=== PATIENT | female | born 1965 | race Caucasian/White ===

== ENCOUNTER 2019-11-04 19:26 | Emergency (ER) | payer OTHER, SELFPAY ==
[2019-11-04] MEDS ORDERED: Prochlorperazine 10 MG/2 ML VIAL ONE (20:12)
[2019-11-04] MEDS ORDERED: Loperamide HCl 2 MG CAP ONE (20:12)
[2019-11-04] MEDS ORDERED: Ondansetron ODT 4 MG TAB ONE (20:12)
== END 2019-11-04 20:41 | disposition home or self-care (01) ==
LOC: MADERS 19:26
DX: J20.8 Acute bronchitis due to other specified organisms (principal); K52.9 Noninfective gastroenteritis and colitis, unspecified; F31.9 Bipolar disorder, unspecified; F20.9 Schizophrenia, unspecified; Z79.899 Other long term (current) drug therapy
CPT/HCPCS: 87804; 96372; 99284; J0780; Q0162

== ENCOUNTER 2019-11-23 22:17 | Emergency (ER) | payer OTHER ==
--- NOTE | 2019-11-23 22:47 | RAD ---
XR Ankle Lt 3 View STANDARD HISTORY: Injury to ankle COMPARISON: None. FINDINGS: There is an avulsive-type injury off the dorsal side of the talus which could be acute. No joint effusion. Calcaneal spurs are noted. IMPRESSION: Avulsion fracture from the dorsal side of the distal talus.
[2019-11-23] MEDS ORDERED: Ibuprofen 800 MG TAB ONE (23:01)
== END 2019-11-23 23:14 | disposition home or self-care (01) ==
LOC: MADERS 22:17
DX: S92.155A Nondisplaced avulsion fracture (chip fracture) of left talus, initial encounter for closed fracture (principal); F31.9 Bipolar disorder, unspecified; F20.9 Schizophrenia, unspecified; Z79.899 Other long term (current) drug therapy; W10.9XXA Fall (on) (from) unspecified stairs and steps, initial encounter

== ENCOUNTER 2020-02-24 17:22 | Emergency (ER) | payer OTHER, SELFPAY | END 2020-02-24 17:55 | disposition home or self-care (01) | LOC: MADERS 17:22 | DX: J06.9 Acute upper respiratory infection, unspecified (principal); F31.9 Bipolar disorder, unspecified; F20.9 Schizophrenia, unspecified; Z79.899 Other long term (current) drug therapy | CPT/HCPCS: 99283 ==

== ENCOUNTER 2020-05-28 13:44 | Outpatient (CLI) | payer OTHER ==
--- NOTE | 2020-05-28 14:04 | RAD ---
Exam: XR Knee Rt 4 View STANDARD HISTORY: Right knee pain after a fall one month ago COMPARISON: 11/23/2013 FINDINGS: There is mild capsular distention suprapatellar location. A patellar enthesophyte is seen. No acute fracture, dislocation, or other acute osseous abnormality is identified. IMPRESSION: Small joint effusion without evidence of an acute osseous abnormality.
== END 2020-05-28 13:45 | disposition home or self-care (01) ==
LOC: MADRAD 13:44
PROVIDERS: ATTEND Family Medicine
DX: M25.561 Pain in right knee (principal); M25.461 Effusion, right knee

== ENCOUNTER 2020-10-06 12:54 | Emergency (ER) | payer OTHER, SELFPAY ==
--- NOTE | 2020-10-06 13:41 | RAD ---
EXAM: Single view of the chest HISTORY: Cough and fever COMPARISON: None FINDINGS: Single view of the chest shows a mildly enlarged cardiomediastinal silhouette. There is no evidence of consolidation, mass, or pleural effusion. No acute osseous abnormality. IMPRESSION: No evidence of acute cardiopulmonary disease
[2020-10-07 08:17] LABS: SARS-CoV-2 MS2 Positive; SARS-CoV-2 N Gene Positive; SARS-CoV-2 S Gene Positive; SARS-CoV-2 by NAA DETECTED (NotDetected); SARS-CoV-2 orf1ab Positive
== END 2020-10-06 14:55 | disposition home or self-care (01) ==
LOC: MADERS 12:54
DX: U07.1 COVID-19 (principal); F31.9 Bipolar disorder, unspecified; F20.9 Schizophrenia, unspecified
CPT/HCPCS: 71045; 87635; U0003

== ENCOUNTER 2020-11-15 22:41 | Emergency (ER) | payer SELFPAY ==
[2020-11-15 23:27] LABS: Hemoglobin 8.4 g/dL (12.0-16.0); Mean Corpuscular Hemoglobin 24.1 pg (27.0-31.0); Mean Corpuscular Volume 77.9 fL (78.0-98.0); Mean Platelet Volume 6.4 fL (7.4-10.4); Platelet Count 478 thou/uL (130-400); RBC Distribution Width 17.8 % (11.5-14.5); White Blood Cell (WBC) Count 6.8 thou/uL (4.8-10.8)
[2020-11-15 23:35] LABS: Band 4 % (5-11); Helmet Cells SLIGHT = 2-5 cells (100X) (0-1/hpf); Hypochromia MODERATE=16-30 cells (100X) (0-5/hpf); Lymphocytes 44 % (21-51); MDiff Complete? YES; Monocytes 6 % (0-10); Neutrophil 44 % (42-75); Ovalocytes SLIGHT = 2-5 cells (100X) (0-1/hpf); Platelet Morphology Comment Appears Adequate; Target Cells SLIGHT = 2-5 cells (100X) (0-1/hpf); Tear Drops SLIGHT = 2-5 cells (100X) (0-1/hpf)
[2020-11-15 23:36] LABS: ALT (SGPT) 31 U/L (8-55); AST (SGOT) 94 U/L (5-34); Albumin 3.5 g/dL (3.5-5.0); Alkaline Phosphatase 178 U/L (40-110); Anion Gap 15 mmol/L (10-20); BUN (Urea Nitrogen) 15 mg/dL (9.8-20.1); Bilirubin, Total 0.6 mg/dL (0.2-1.2); Calc. Creatinine Clearance 0 mL/min (70-130); Calcium 8.5 mg/dL (7.8-10.44); Carbon Dioxide 21 mmol/L (22-29); Chloride 106 mmol/L (98-107); Globulin 2.6 g/dL (2.4-3.5); Glucose 117 mg/dL (70-105); Potassium 4.1 mmol/L (3.5-5.1); Protein, Total 6.1 g/dL (6.0-8.3); Sodium 138 mmol/L (136-145)
--- NOTE | 2020-11-15 23:38 | CT ---
CT ABDOMEN NONCONTRAST CT PELVIS NONCONTRAST: (Urolithiasis protocol) DATE: 11/15/2020 11:21 PM HISTORY: 55-year-old female with abdominal pain, including right flank pain COMPARISON: None TECHNIQUE: IV injection of iodinated contrast media: None Oral contrast media: None FINDINGS: Other than for urolithiasis, the lack of IV and oral contrast limits the evaluation. Streaky platelike and groundglass infiltrates, mostly peripheral, at the bases of bilateral lower lob es and right middle lobe. No pleural effusion, ascites, pneumoperitoneum, colonic diverticulitis, or small bowel dilation. Large number of small partially calcified gallstones within distended gallbladder. Minimal pericholec ystic fat stranding questioned. Approximately 35-50% of the stomach herniated into lower mediastinum. No renal, ureteral, or bladder calculus. Normal appendix. Within the limitations of a noncontrast scan, no major pathology identified involving kidneys, bladde r, abdominal aorta, pancreas, adrenals, liver, or spleen. IMPRESSION: 1) cholelithiasis within distended gallbladder, questionable for acute cholecystitis. 2) nonspecific bibasilar infiltrates. This may or may not represent COVID-19 pneumonia. 3) moderate size hiatal hernia. 4) no urolithiasis or obstructive uropathy.
[2020-11-15] MEDS ORDERED: Bacitracin 1 PK ONE (23:40)
[2020-11-15] MEDS ORDERED: Morphine 4 MG/ML VIAL ONE (23:49)
[2020-11-15] MEDS ORDERED: Piperacillin/Tazobactam 4.5 GM VIAL ONE (23:50)
[2020-11-15] MEDS ORDERED: Ondansetron PF 4 MG/2 ML Vial ONE (23:50)
[2020-11-15] MEDS ORDERED: Sodium Chloride 0.9% 100 ML ONE (23:50)
[2020-11-15] MEDS ORDERED: Sodium Chloride 0.9% 1,000 ML ONE (23:50)
== END 2020-11-16 00:16 | disposition short-term general hospital (02) ==
LOC: MADERS 22:41
DX: K80.20 Calculus of gallbladder without cholecystitis without obstruction (principal); Z86.718 Personal history of other venous thrombosis and embolism; Z79.899 Other long term (current) drug therapy; Z79.01 Long term (current) use of anticoagulants
CPT/HCPCS: 74176; 80053; 85025; 93005; 96365; 96375; J2270; J2405; J2543; J3490; J7050

== ENCOUNTER 2020-11-27 12:02 | Emergency (ER) | payer OTHER, SELFPAY ==
[~2020-11-27 12:02] MED LIST: Iopamidol 370 76% 125 ML VIAL FS ONE
[2020-11-27] MEDS ORDERED: Enoxaparin Sodium 80 MG/0.8 ML SYRINGE ONE (13:09)
--- NOTE | 2020-11-27 13:19 | RAD ---
EXAM: Portable chest PROVIDED CLINICAL HISTORY: Dyspnea COMPARISON: None FINDINGS: Cardiac silhouette appears enlarged, which may be least partially on the basis of portable technique. There are persistent but less conspicuous peripheral interstitial opacities typical for sequela of Covid pneumonia. No lobar consolidation, pleural fluid or pneumothorax apparent. IMPRESSION: 1. Prominence of the cardiac silhouette, new from prior. 2. Persistent but diminished bilateral peripheral interstitial opacities typical for sequela of Covid pneumonia.
[2020-11-27 13:47] LABS: #Basophils 0.1 thou/uL (0.0-0.2); #Eosinphils 0.2 thou/uL (0.0-0.7); #Lymphocytes 1.7 thou/uL (1.20-3.40); #Monocytes 0.6 thou/uL (0.11-0.59); #Neutrophils 3.8 thou/uL (1.40-6.50); %Basophils 1.7 % (0.0-1.0); %Eosinophils 3.5 % (0.0-10.0); %Lymphocytes 26.5 % (21.0-51.0); %Monocytes 9.6 % (0.0-10.0); %Neutrophils 58.8 % (42.0-75.0); Anisocytosis SLIGHT = 6-15 cells (100X) (0-5/hpf); Hemoglobin 9.3 g/dL (12.0-16.0); Hypochromia MODERATE=16-30 cells (100X) (0-5/hpf); MDiff Complete? YES; Mean Corpuscular HGB CONC 29.8 g/dL (32.0-36.0); Mean Corpuscular Hemoglobin 22.6 pg (27.0-31.0); Mean Corpuscular Volume 76.1 fL (78.0-98.0); Mean Platelet Volume 6.7 fL (7.4-10.4); Microcytosis SLIGHT = 6-15 cells (100X) (0-5/hpf); Platelet Count 431 thou/uL (130-400); Platelet Morphology Comment Appears Increased; RBC Distribution Width 16.8 % (11.5-14.5); Target Cells SLIGHT = 2-5 cells (100X) (0-1/hpf); White Blood Cell (WBC) Count 6.4 thou/uL (4.8-10.8)
[2020-11-27 13:50] LABS: ALT (SGPT) 42 U/L (8-55); AST (SGOT) 22 U/L (5-34); Albumin 3.8 g/dL (3.5-5.0); Alkaline Phosphatase 211 U/L (40-110); Anion Gap 14 mmol/L (10-20); BUN (Urea Nitrogen) 10 mg/dL (9.8-20.1); Bilirubin, Total 0.3 mg/dL (0.2-1.2); CK (CPK) 23 U/L (29-168); Calc. Creatinine Clearance 0 mL/min (70-130); Calcium 8.6 mg/dL (7.8-10.44); Carbon Dioxide 24 mmol/L (22-29); Chloride 105 mmol/L (98-107); Globulin 3.1 g/dL (2.4-3.5); Glucose 96 mg/dL (70-105); Potassium 3.9 mmol/L (3.5-5.1); Protein, Total 6.9 g/dL (6.0-8.3); Sodium 139 mmol/L (136-145)
--- NOTE | 2020-11-27 15:18 | CT ---
EXAM: CT pulmonary angiogram with IV contrast and 3-D MIP reconstructions PROVIDED CLINICAL HISTORY: Dyspnea COMPARISON: 10/18/2020 FINDINGS: Evaluation is limited by patient respiratory motion. There is no evidence for central or proximal seg mental pulmonary embolus. Evaluation of the more distal pulmonary arterial system is not possible due to patient respiratory motion. There are extensive reticular opacities involving the peripheral/subpleural aspects of each lung, com patible with sequela of prior Covid pneumonia. There is no consolidation evident. No pleural fluid or pneumothorax apparent. No evidence for thoracic lymph node enlargement. The airway appears patent and of normal caliber. There is a moderate hiatal hernia demonstrated. The osseous structures demonstrate no concerning lytic or blastic lesions. IMPRESSION: No evidence for central or proximal segmental pulmonary embolus.
== END 2020-11-27 15:30 | disposition home or self-care (01) ==
LOC: MADERS 12:02
DX: I82.402 Acute embolism and thrombosis of unspecified deep veins of left lower extremity (principal); F41.9 Anxiety disorder, unspecified; F31.9 Bipolar disorder, unspecified; Z79.899 Other long term (current) drug therapy
CPT/HCPCS: 71045; 71275; 80053; 82550; 85025; 85379; 96372; J1650; Q9967

== ENCOUNTER 2021-11-19 19:24 | Emergency (ER) | payer OTHER ==
[2021-11-19] MEDS ORDERED: Iopamidol 370 76% 125 ML VIAL FS ONE (19:25)
[2021-11-19] MEDS ORDERED: Sodium Chloride 0.9% 100 ML BAG FS ONE (19:25)
[2021-11-19 20:36] LABS: ALT (SGPT) 8 U/L (8-55); AST (SGOT) 9 U/L (5-34); Albumin 4.1 g/dL (3.5-5.0); Alkaline Phosphatase 117 U/L (40-110); Anion Gap 14 mmol/L (10-20); BUN (Urea Nitrogen) 12 mg/dL (9.8-20.1); Bilirubin, Total 0.3 mg/dL (0.2-1.2); CK (CPK) 21 U/L (29-168); Calc. Creatinine Clearance 0 mL/min (70-130); Calcium 9.2 mg/dL (7.8-10.44); Carbon Dioxide 24 mmol/L (22-29); Chloride 100 mmol/L (98-107); Globulin 3.2 g/dL (2.4-3.5); Glucose 108 mg/dL (70-105); Potassium 3.8 mmol/L (3.5-5.1); Protein, Total 7.3 g/dL (6.0-8.3); Sodium 134 mmol/L (136-145)
[2021-11-19 20:40] LABS: #Basophils 0.1 thou/uL (0.0-0.2); #Eosinphils 0.1 thou/uL (0.0-0.7); #Lymphocytes 1.9 thou/uL (1.20-3.40); #Monocytes 0.6 thou/uL (0.11-0.59); #Neutrophils 5.3 thou/uL (1.40-6.50); %Eosinophils 1.4 % (0.0-10.0); %Lymphocytes 23.9 % (21.0-51.0); %Neutrophils 65.8 % (42.0-75.0); Anisocytosis SLIGHT = 6-15 cells (100X) (0-5/hpf); Helmet Cells SLIGHT = 2-5 cells (100X) (0-1/hpf); Hemoglobin 5.9 g/dL (12.0-16.0); Hypochromia MODERATE=16-30 cells (100X) (0-5/hpf); MDiff Complete? YES; Mean Corpuscular HGB CONC 27.4 g/dL (32.0-36.0); Mean Corpuscular Volume 62.2 fL (78.0-98.0); Mean Platelet Volume 5.9 fL (7.4-10.4); Microcytosis SLIGHT = 6-15 cells (100X) (0-5/hpf); Ovalocytes SLIGHT = 2-5 cells (100X) (0-1/hpf); Platelet Count 503 thou/uL (130-400); Platelet Morphology Comment Appears Increased; Red Blood Cell (RBC) Count 3.46 mill/uL (4.20-5.40)
[2021-11-19 20:46] LABS: Magnesium 2.2 mg/dL (1.6-2.6)
[2021-11-19 21:08] LABS: INR-International Normal Ratio 0.9; Prothrombin Time 12.7 sec (12.0-14.7)
[2021-11-19] MEDS ORDERED: Sodium Chloride 0.9% 1,000 ML ONE (21:52)
[2021-11-19] MEDS ORDERED: Pantoprazole 40 MG VIAL ONE (21:55)
[2021-11-20 00:55] LABS: Hemoglobin 6.2 g/dL (12.0-16.0)
[2021-11-20 06:46] LABS: Hemoglobin 7.8 g/dL (12.0-16.0); Mean Corpuscular HGB CONC 29.4 g/dL (32.0-36.0); Mean Corpuscular Hemoglobin 20.4 pg (27.0-31.0); Mean Corpuscular Volume 69.1 fL (78.0-98.0); Mean Platelet Volume 6.7 fL (7.4-10.4); Platelet Count 442 thou/uL (130-400); Red Blood Cell (RBC) Count 3.82 mill/uL (4.20-5.40)
[2021-11-20 07:25] LABS: #Basophils 0.1 thou/uL (0.0-0.2); #Eosinphils 0.1 thou/uL (0.0-0.7); #Lymphocytes 2.2 thou/uL (1.20-3.40); #Monocytes 0.6 thou/uL (0.11-0.59); %Basophils 1.3 % (0.0-1.0); %Eosinophils 2.5 % (0.0-10.0); %Lymphocytes 36.4 % (21.0-51.0); %Monocytes 9.7 % (0.0-10.0); %Neutrophils 50.2 % (42.0-75.0); Hypochromia SLIGHT = 6-15 cells (100X) (0-5/hpf); MDiff Complete? YES; Microcytosis SLIGHT = 6-15 cells (100X) (0-5/hpf); Poikilocytosis SLIGHT = 6-15 cells (100X) (0-5/hpf); Polychromasia SLIGHT = 2-3 cells (100X) (0-2/hpf)
[2021-11-20 07:26] LABS: Platelet Morphology Comment Appears Increased
== END 2021-11-20 08:32 | disposition short-term general hospital (02) ==
LOC: MADERS 19:24
DX: D64.9 Anemia, unspecified (principal); R55 Syncope and collapse; E87.1 Hypo-osmolality and hyponatremia; Z86.16 Personal history of COVID-19; K21.9 Gastro-esophageal reflux disease without esophagitis; Z79.01 Long term (current) use of anticoagulants
CPT/HCPCS: 36430; 70450; 71275; 80053; 82274; 82550; 83735; 84484; 85014; 85018; 85025; 85610; 85730; 86850; 86900; 86901; 93005; 96374; C9113; J3490; J7050; P9016; Q9967

== ENCOUNTER 2021-12-02 16:43 | Emergency (ER) | payer SELFPAY ==
[2021-12-02 17:28] LABS: Anion Gap 15 mmol/L (10-20); BUN (Urea Nitrogen) 22 mg/dL (9.8-20.1); Calc. Creatinine Clearance 0 mL/min (70-130); Calcium 9.9 mg/dL (7.8-10.44); Carbon Dioxide 25 mmol/L (22-29); Chloride 104 mmol/L (98-107); Glucose 122 mg/dL (70-105); Sodium 140 mmol/L (136-145)
[2021-12-02 17:48] LABS: #Basophils 0.1 thou/uL (0.0-0.2); #Eosinphils 0.2 thou/uL (0.0-0.7); #Monocytes 0.5 thou/uL (0.11-0.59); #Neutrophils 6.8 thou/uL (1.40-6.50); %Basophils 1.4 % (0.0-1.0); %Eosinophils 1.6 % (0.0-10.0); %Monocytes 4.8 % (0.0-10.0); %Neutrophils 71.3 % (42.0-75.0); Hemoglobin 8.4 g/dL (12.0-16.0); Mean Corpuscular HGB CONC 28.5 g/dL (32.0-36.0); Mean Corpuscular Hemoglobin 20.4 pg (27.0-31.0); Mean Corpuscular Volume 71.4 fL (78.0-98.0); Mean Platelet Volume 6.2 fL (7.4-10.4); Platelet Count 624 thou/uL (130-400); RBC Distribution Width 26.2 % (11.5-14.5); Red Blood Cell (RBC) Count 4.12 mill/uL (4.20-5.40); White Blood Cell (WBC) Count 9.6 thou/uL (4.8-10.8)
[2021-12-02 17:49] LABS: Anisocytosis MARKED = >30 cells (100X) (0-5/hpf); Hypochromia MODERATE=16-30 cells (100X) (0-5/hpf); MDiff Complete? YES; Microcytosis SLIGHT = 6-15 cells (100X) (0-5/hpf); Platelet Morphology Comment Appears Increased; Poikilocytosis MARKED = >30 cells (100X) (0-5/hpf); Polychromasia MODERATE = 3-4 cells (100X) (0-2/hpf); Reflex for Review?? NO
== END 2021-12-02 18:48 | disposition home or self-care (01) ==
LOC: MADERS 16:43
DX: R55 Syncope and collapse (principal); E86.0 Dehydration; Z86.16 Personal history of COVID-19; K21.9 Gastro-esophageal reflux disease without esophagitis
CPT/HCPCS: 71045; 80048; 84484; 85025; 93005

== ENCOUNTER 2023-01-03 16:26 | Emergency (ER) | payer OTHER ==
[2023-01-03 17:43] LABS: ALT (SGPT) 14 U/L (8-55); AST (SGOT) 16 U/L (5-34); Albumin 4.2 g/dL (3.5-5.0); Alkaline Phosphatase 131 U/L (40-110); Anion Gap 14 mmol/L (10-20); BUN (Urea Nitrogen) 14 mg/dL (9.8-20.1); Bilirubin, Total 0.3 mg/dL (0.2-1.2); Calc. Creatinine Clearance 0 mL/min (70-130); Calcium 9.2 mg/dL (7.8-10.44); Carbon Dioxide 25 mmol/L (22-29); Chloride 105 mmol/L (98-107); Estimated GFR 79; Glucose 103 mg/dL (70-105); Potassium 4.1 mmol/L (3.5-5.1); Protein, Total 7.2 g/dL (6.0-8.3); Sodium 140 mmol/L (136-145)
[2023-01-03 17:45] LABS: Hypochromia MODERATE=16-30 cells (100X) (0-5/hpf); MDiff Complete? YES; Microcytosis SLIGHT = 6-15 cells (100X) (0-5/hpf); Polychromasia MODERATE = 3-4 cells (100X) (0-2/hpf)
[2023-01-03 17:46] LABS: #Basophils 0.1 thou/uL (0.0-0.2); #Eosinphils 0.1 thou/uL (0.0-0.7); #Lymphocytes 2.1 thou/uL (1.20-3.40); #Monocytes 0.5 thou/uL (0.11-0.59); #Neutrophils 5.2 thou/uL (1.40-6.50); %Eosinophils 1.5 % (0.0-10.0); %Lymphocytes 26.5 % (21.0-51.0); Hemoglobin 6.9 g/dL (12.0-16.0); Mean Corpuscular HGB CONC 28.1 g/dL (32.0-36.0); Mean Corpuscular Hemoglobin 17.1 pg (27.0-31.0); Mean Corpuscular Volume 60.8 fl (78.0-98.0); Mean Platelet Volume 6.3 fL (7.4-10.4); Platelet Count 521 10x3/uL (130-400); RBC Distribution Width 14.6 % (11.5-14.5); Red Blood Cell (RBC) Count 4.07 mill/uL (4.20-5.40); White Blood Cell (WBC) Count 8.1 10x3/uL (4.8-10.8)
[2023-01-03 22:12] LABS: Hemoglobin 7.5 g/dL (12.0-16.0)
== END 2023-01-03 22:32 | disposition home or self-care (01) ==
LOC: MADERS 16:26
DX: D64.9 Anemia, unspecified (principal); K21.9 Gastro-esophageal reflux disease without esophagitis; Z79.899 Other long term (current) drug therapy
CPT/HCPCS: 36415; 36430; 71275; 86850; 86900; 86901; P9016

== ENCOUNTER 2023-10-03 16:23 | Emergency (ER) | payer OTHER | END 2023-10-03 17:45 | disposition home or self-care (01) | LOC: MADERS 16:23 | DX: M77.9 Enthesopathy, unspecified (principal) | CPT/HCPCS: 99283 ==